=== PATIENT | female | born 1940 | race Caucasian/White ===

== ENCOUNTER 2023-02-15 11:30 | Day surgery (SDC) | payer OTHER ==
[2023-02-07 09:52] LABS: Absolute Lymphocytes (CBC) 1.2 K/uL (0.7-4.9); Hematocrit 39.3 % (36.0-45.0); Lymphocytes % 19.7 % (15.3-44.8); MCV 92.7 fL (80-100); MPV 7.3 fL (7.6-11.3); Platelets 255 thou/uL (152-406); RBC Red Blood Cell Count 4.24 M/uL (3.86-4.86)
[2023-02-07 10:00] LABS: Protime INR 1.02
--- NOTE | 2023-02-07 10:10 | RAD REPORT ---
EXAM DESCRIPTION: Alyx Fuentes And Korey (2 Views)02/07/2023 10:01 am CLINICAL HISTORY: Preop for heart catheterization. Coronary artery disease COMPARISON: 2016 FINDINGS: Postsurgical changes involve the chest Lungs are mildly to moderately hyperaerated. The lungs appear clear of acute infiltrate. The heart is normal size IMPRESSION: No acute abnormalities displayed
[2023-02-07 10:15] LABS: Potassium 4.4 mEq/L (3.5-5.1)
--- NOTE | 2023-02-11 14:27 | EKG ---
Test Date: 2023-02-07 Test Time: 10:28:32 Rand Butter: FARRUKH MEASUREMENT RESULTS: Intervals: Rate: 63 ND: 168 QRSD: 110 QT: 420 QTc: 429 [place]: P: 68 ND: 168 QRS: -27 T: 40 INTERPRETIVE STATEMENTS: Normal sinus rhythm Incomplete right bundle branch block Borderline ECG Compared to ECG 12/25/2015 03:49:21 Incomplete right bundle-branch block now present Sinus arrhythmia no longer present Left-axis deviation no longer present Electronically Signed On 02-11-23 14:15:13 MONUMENT CARVER by Christiano Sparks
[2023-02-15 12:28] VITALS: BP 144/58; O2SAT 98
[2023-02-15] MEDS ORDERED: NA CHLORIDE 0.9% 500 ML ONE (12:28)
[2023-02-15] MEDS ORDERED: CLOPIDOGREL 75 MG TABLET ONE (15:36)
== END 2023-02-15 13:57 | disposition home or self-care (01) ==
LOC: CCL 11:30
PROVIDERS: ATTEND Internal Medicine
DX: I35.2 Nonrheumatic aortic (valve) stenosis with insufficiency (principal); Z53.20 Procedure and treatment not carried out because of patient's decision for unspecified reasons; R07.9 Chest pain, unspecified; I65.23 Occlusion and stenosis of bilateral carotid arteries; I10 Essential (primary) hypertension; E78.2 Mixed hyperlipidemia; Z95.1 Presence of aortocoronary bypass graft; Z87.891 Personal history of nicotine dependence; Z88.0 Allergy status to penicillin; Z88.6 Allergy status to analgesic agent; Z88.8 Allergy status to other drugs, medicaments and biological substances
CPT/HCPCS: 93005; 85025; 80048; 36415; 85610; 85730; 71046; J7040